=== PATIENT | male | born 1955 | race Caucasian/White ===

== ENCOUNTER → 2023-10-01 07:03 | Outpatient (REF) | payer MEDICARE, SELFPAY ==
[2023-10-01 08:00] LABS: % Basophils 1.4 % (0-2); % Eosinophils 4.1 % (0-6); % Immature Granulocytes 0.2 % (0-0.5); % Lymphocytes 32.6 % (20.5-51.1); % Monocytes 5.7 % (1.7-9.3); Absolute Basophils 0.1 10^3/uL (0-0.2); Absolute Eosinophils 0.2 10^3/uL (0-0.7); Absolute Lymphocytes 1.7 10^3/uL (1.2-3.4); Absolute Monocytes 0.3 10^3/uL (0.1-0.6); Absolute Neutrophils 2.9 10^3/uL (1.4-6.5); Hematocrit 45.1 % (39.0-52.0); Hemoglobin 15.7 g/dL (13.0-18.0); Mean Corp Hgb Conc. 34.8 g/dL (33.0-37.0); Mean Corpuscular Hgb 31.1 pg (27.0-31.0); Mean Corpuscular Volume 89.3 fL (80.0-94.0); Mean Platelet Volume 10.6 fL (7.4-10.4); Nucleated Red Blood Cells % 0 % (-); Platelet Count 197 10^3/uL (130-400); Red Blood Cell Count 5.05 10^6/uL (4.70-6.10); Red Cell Dist. Width 12.7 % (11.5-14.5); White Blood Cell Count 5.1 10^3/uL (4.8-10.8)
[2023-10-01 08:27] LABS: ALT (SGPT) 22 U/L (0-50); AST (SGOT) 25 U/L (17-59); Albumin 4.2 g/dl (3.5-5.0); Alkaline Phosphatase 58 U/L (38-126); Blood Urea Nitrogen 17 mg/dl (9-20); Calcium 9.6 mg/dl (8.4-10.2); Carbon Dioxide 30 mmol/L (22-30); Chloride 100 mmol/L (98-107); Glucose 143 mg/dl (70-99); HDL Cholesterol 53 mg/dl; LDL Cholesterol, Calculated 57 mg/dl; Potassium 4.2 mmol/L (3.5-5.1); Sodium 139 mmol/L (135-145); Total Bilirubin 0.8 mg/dl (0.2-1.3); Total Cholesterol 130 mg/dl (50-199); Total Protein 7.3 g/dl (6.3-8.2); Triglyceride 100 mg/dl (10-149); Very Low Density Lipoprotein 20 mg/dl (0-30); eGFR > 60.00
[2023-10-01 08:31] LABS: Microalbumin, Random Urine 2.7 mg/dl (0.6-1.7); Microalbumin/creatinine Ratio 29.8 mg/g; Protein/creatinine Ratio 0.1; Urine Protein 13 mg/dl
[2023-10-01 08:51] LABS: Vitamin D, 25-OH*** 64.3 ng/mL (30-80)
[2023-10-01 09:04] LABS: TSH 1.93 uIU/ml (0.47-4.68)
[2023-10-01 09:22] LABS: Glycohemoglobin (HgbA1c) 6.7 % (4.0-5.6)
[2023-10-02 12:40] LABS: Intact PTH 97.5 pg/ml (13.6-85.8)
[2023-10-02 19:54] LABS: Thyroid Peroxidase Ab (TPO) 1.1 IU/mL (0.0-9.0)
[2023-10-02 20:39] LABS: Thyroglobulin Antibodies <0.9 IU/mL (0.0-4.0)
== END ==
LOC: REG 07:03
PROVIDERS: ATTENDING PHYSICIAN Physician Assistant; FAMILY PHYSICIAN Internal Medicine
DX: E11.9 Type 2 diabetes mellitus without complications (principal); E04.1 Nontoxic single thyroid nodule; E78.5 Hyperlipidemia, unspecified; M85.80 Other specified disorders of bone density and structure, unspecified site; E55.9 Vitamin D deficiency, unspecified
CPT/HCPCS: 36415; 80053; 80061; 82043; 82306; 82570; 83036; 83970; 84156; 84432; 84439; 84443; 85025; 86376; 86800

== ENCOUNTER → 2024-01-03 08:42 | Outpatient (REF) | payer MEDICARE, SELFPAY ==
[2024-01-03 10:19] LABS: Urine Albumin Negative (Neg - Trace); Urine Bilirubin Negative (Negative); Urine Character Clear (Clear); Urine Color Yellow; Urine Glucose 3+ (Negative); Urine Ketone Negative (Negative); Urine Leukocyte Negative (Negative); Urine Nitrite Negative (Negative); Urine Occult Blood Negative (Negative); Urine Specific Gravity 1.015 (<1.030); Urine Urobilinogen Negative (Neg - 1+)
[2024-01-03 10:55] LABS: PSA, Total - Screen 1.12 ng/ml (0.0-4.0)
== END ==
LOC: REG 08:42
PROVIDERS: ATTENDING PHYSICIAN Internal Medicine; REFERRING PHYSICIAN Specialist
DX: Z12.5 Encounter for screening for malignant neoplasm of prostate (principal); N40.1 Benign prostatic hyperplasia with lower urinary tract symptoms
CPT/HCPCS: 36415; 81003; G0103

== ENCOUNTER → 2024-04-08 06:55 | Outpatient (REF) | payer MEDICARE, SELFPAY ==
[2024-04-08 08:57] LABS: % Eosinophils 7.5 % (0-6); % Immature Granulocytes 0.2 % (0-0.5); % Lymphocytes 34.1 % (20.5-51.1); % Neutrophils 49.2 % (42.2-75.2); Absolute Basophils 0.1 10^3/uL (0-0.2); Absolute Eosinophils 0.4 10^3/uL (0-0.7); Absolute Lymphocytes 1.7 10^3/uL (1.2-3.4); Absolute Monocytes 0.4 10^3/uL (0.1-0.6); Absolute Neutrophils 2.5 10^3/uL (1.4-6.5); Hematocrit 41.6 % (39.0-52.0); Hemoglobin 14.5 g/dL (13.0-18.0); Mean Corp Hgb Conc. 34.9 g/dL (33.0-37.0); Mean Corpuscular Hgb 30.9 pg (27.0-31.0); Mean Corpuscular Volume 88.5 fL (80.0-94.0); Nucleated Red Blood Cells % 0 % (-); Platelet Count 167 10^3/uL (130-400); Red Cell Dist. Width 12.7 % (11.5-14.5); White Blood Cell Count 5.1 10^3/uL (4.8-10.8)
[2024-04-08 09:01] LABS: ALT (SGPT) 25 U/L (0-50); AST (SGOT) 27 U/L (17-59); Albumin 4.6 g/dl (3.5-5.0); Alkaline Phosphatase 52 U/L (38-126); Blood Urea Nitrogen 18 mg/dl (9-20); Calcium 9.6 mg/dl (8.4-10.2); Carbon Dioxide 27 mmol/L (22-30); Chloride 106 mmol/L (98-107); Glucose 111 mg/dl (70-99); Potassium 4.3 mmol/L (3.5-5.1); Sodium 143 mmol/L (135-145); Total Bilirubin 0.7 mg/dl (0.2-1.3); Total Protein 6.9 g/dl (6.3-8.2); eGFR > 60.00
[2024-04-08 11:40] LABS: Glycohemoglobin (HgbA1c) 6.1 % (4.0-5.6)
[2024-04-09 10:59] LABS: Intact PTH 79.1 pg/ml (13.6-85.8)
== END ==
LOC: REG 06:55
PROVIDERS: ATTENDING PHYSICIAN Physician Assistant; FAMILY PHYSICIAN Internal Medicine
DX: E11.9 Type 2 diabetes mellitus without complications (principal); M85.80 Other specified disorders of bone density and structure, unspecified site; E04.1 Nontoxic single thyroid nodule
CPT/HCPCS: 36415; 80053; 83036; 83970; 85025

== ENCOUNTER → 2024-08-08 07:13 | Outpatient (REF) | payer MEDICARE, SELFPAY ==
[2024-08-08 11:32] LABS: Glycohemoglobin (HgbA1c) 6.4 % (4.0-5.6)
== END ==
LOC: REG 07:13
PROVIDERS: ATTENDING PHYSICIAN Internal Medicine
DX: E11.9 Type 2 diabetes mellitus without complications (principal)
CPT/HCPCS: 36415; 83036

== ENCOUNTER → 2024-09-25 14:22 | Outpatient (REF) | payer MEDICARE, SELFPAY | LOC: HWRAD 14:22 | PROVIDERS: ATTENDING PHYSICIAN Physician Assistant; FAMILY PHYSICIAN Internal Medicine | DX: E04.1 Nontoxic single thyroid nodule (principal) | CPT/HCPCS: 76536 ==

== ENCOUNTER → 2024-10-01 07:51 | Outpatient (REF) | payer MEDICARE, SELFPAY ==
[2024-10-01 08:38] LABS: % Basophils 1.5 % (0-2); % Eosinophils 5.7 % (0-6); % Immature Granulocytes 0.2 % (0-0.5); % Lymphocytes 27.6 % (20.5-51.1); % Monocytes 7.4 % (1.7-9.3); % Neutrophils 57.6 % (42.2-75.2); Absolute Basophils 0.1 10^3/uL (0-0.2); Absolute Eosinophils 0.3 10^3/uL (0-0.7); Absolute Lymphocytes 1.3 10^3/uL (1.2-3.4); Absolute Monocytes 0.3 10^3/uL (0.1-0.6); Absolute Neutrophils 2.6 10^3/uL (1.4-6.5); Hematocrit 46.3 % (39.0-52.0); Hemoglobin 15.8 g/dL (13.0-18.0); Mean Corp Hgb Conc. 34.1 g/dL (33.0-37.0); Mean Corpuscular Hgb 30.8 pg (27.0-31.0); Mean Corpuscular Volume 90.3 fL (80.0-94.0); Mean Platelet Volume 10.5 fL (7.4-10.4); Nucleated Red Blood Cells % 0 % (-); Platelet Count 214 10^3/uL (130-400); Red Blood Cell Count 5.13 10^6/uL (4.70-6.10); Red Cell Dist. Width 12.6 % (11.5-14.5); White Blood Cell Count 4.6 10^3/uL (4.8-10.8)
[2024-10-01 09:41] LABS: Glycohemoglobin (HgbA1c) 6.6 % (4.0-5.6)
[2024-10-01 10:27] LABS: Protein/creatinine Ratio 0.3; Urine Protein 21 mg/dl
[2024-10-01 10:33] LABS: Microalbumin, Random Urine 4.1 mg/dl (0.6-1.7); Microalbumin/creatinine Ratio 50.4 mg/g
[2024-10-01 10:34] LABS: ALT (SGPT) 26 U/L (0-50); AST (SGOT) 26 U/L (17-59); Albumin 4.4 g/dl (3.5-5.0); Alkaline Phosphatase 57 U/L (38-126); Blood Urea Nitrogen 16 mg/dl (9-20); Calcium 9.4 mg/dl (8.4-10.2); Carbon Dioxide 28 mmol/L (22-30); Chloride 102 mmol/L (98-107); Glucose 142 mg/dl (70-99); HDL Cholesterol 51 mg/dl; LDL Cholesterol, Calculated 82 mg/dl; Potassium 4.5 mmol/L (3.5-5.1); Sodium 138 mmol/L (135-145); Total Bilirubin 0.8 mg/dl (0.2-1.3); Total Cholesterol 152 mg/dl (50-199); Total Protein 7.1 g/dl (6.3-8.2); Triglyceride 95 mg/dl (10-149); Very Low Density Lipoprotein 19 mg/dl (0-30); eGFR > 60.00
[2024-10-01 11:07] LABS: TSH 1.47 uIU/ml (0.47-4.68)
== END ==
LOC: REG 07:51
PROVIDERS: ATTENDING PHYSICIAN Physician Assistant; FAMILY PHYSICIAN Internal Medicine
DX: E11.65 Type 2 diabetes mellitus with hyperglycemia (principal); E55.9 Vitamin D deficiency, unspecified; E78.5 Hyperlipidemia, unspecified; E04.1 Nontoxic single thyroid nodule; R80.9 Proteinuria, unspecified
CPT/HCPCS: 36415; 80053; 80061; 82043; 82306; 82570; 83036; 84156; 84443; 85025

== ENCOUNTER → 2024-11-20 06:48 | Outpatient (REF) | payer MEDICARE, SELFPAY ==
[2024-11-20 08:36] LABS: Hematocrit 44.3 % (39.0-52.0); Hemoglobin 15.3 g/dL (13.0-18.0); Mean Corp Hgb Conc. 34.5 g/dL (33.0-37.0); Mean Corpuscular Hgb 31.4 pg (27.0-31.0); Mean Platelet Volume 11.3 fL (7.4-10.4); Platelet Count 165 10^3/uL (130-400); Red Blood Cell Count 4.87 10^6/uL (4.70-6.10); Red Cell Dist. Width 12.5 % (11.5-14.5); White Blood Cell Count 5.7 10^3/uL (4.8-10.8)
[2024-11-20 08:59] LABS: Blood Urea Nitrogen 18 mg/dl (9-20); Calcium 9.8 mg/dl (8.4-10.2); Carbon Dioxide 30 mmol/L (22-30); Chloride 104 mmol/L (98-107); Glucose 139 mg/dl (70-99); Potassium 4.6 mmol/L (3.5-5.1); Sodium 144 mmol/L (135-145); eGFR > 60.00
== END ==
LOC: SDSPAT 06:48
PROVIDERS: ATTENDING PHYSICIAN Surgery; FAMILY PHYSICIAN Internal Medicine
DX: Z01.818 Encounter for other preprocedural examination (principal)
CPT/HCPCS: 36415; 80048; 85027; 93005

== ENCOUNTER 2024-12-24 06:24 | Day surgery (SDC) | payer MEDICARE, SELFPAY ==
[2024-11-20 12:43] VITALS: BMI 26.7
[2024-12-24] VITALS (10 sets, daily range): BP systolic 157–179; BP diastolic 76–92; BMI 26.7
[2024-12-24] MEDS: NORMOSOL-R/PLASMALYTE-A 1000 IV (07:57)
[2024-12-24] MEDS: TYLENOL 1000 MG PO (07:57)
[2024-12-24 07:58] LABS: Glucose - Point of Care 134 mg/dl (70-99)
[2024-12-24 09:43] LABS: Glucose - Point of Care 166 mg/dl (70-99)
[2024-12-24] MEDS: ZOFRAN 4 MG IV (11:06)
== END 2024-12-24 12:00 | disposition home or self-care (01) ==
LOC: SDS 06:24
PROVIDERS: ATTENDING PHYSICIAN Surgery
DX: K40.90 Unilateral inguinal hernia, without obstruction or gangrene, not specified as recurrent (principal)
CPT/HCPCS: 49650; 82962; C1781

== ENCOUNTER → 2025-04-02 07:11 | Outpatient (REF) | payer MEDICARE, SELFPAY ==
[2025-04-02 07:51] LABS: Hematocrit 43.9 % (39.0-52.0); Hemoglobin 15.1 g/dL (13.0-18.0); Mean Corp Hgb Conc. 34.4 g/dL (33.0-37.0); Mean Corpuscular Volume 88.7 fL (80.0-94.0); Nucleated Red Blood Cells % 0 % (-); Platelet Count 174 10^3/uL (130-400); Red Cell Dist. Width 12.4 % (11.5-14.5)
[2025-04-02 08:51] LABS: ALT (SGPT) 22 U/L (0-50); AST (SGOT) 25 U/L (17-59); Albumin 4.8 g/dl (3.5-5.0); Alkaline Phosphatase 53 U/L (38-126); Blood Urea Nitrogen 18 mg/dl (9-20); Calcium 9.7 mg/dl (8.4-10.2); Carbon Dioxide 24 mmol/L (22-30); Chloride 106 mmol/L (98-107); Glucose 115 mg/dl (70-99); HDL Cholesterol 54 mg/dl; LDL Cholesterol, Calculated 80 mg/dl; Potassium 4.5 mmol/L (3.5-5.1); Sodium 138 mmol/L (135-145); Total Protein 7.4 g/dl (6.3-8.2); Very Low Density Lipoprotein 12 mg/dl (0-30); eGFR > 60.00
[2025-04-02 09:02] LABS: PSA, Total - Screen 1.07 ng/ml (0.0-4.0)
[2025-04-02 10:13] LABS: Glycohemoglobin (HgbA1c) 6.3 % (4.0-5.6)
[2025-04-02 10:36] LABS: Microalbumin, Random Urine 0.8 mg/dl (0.6-1.7)
[2025-04-02 10:39] LABS: Microalb - Urine Creatinine 37.900 mg/dl
== END ==
LOC: REG 07:11
PROVIDERS: ATTENDING PHYSICIAN Physician Assistant; FAMILY PHYSICIAN Internal Medicine
DX: E11.65 Type 2 diabetes mellitus with hyperglycemia (principal); E11.9 Type 2 diabetes mellitus without complications; I10 Essential (primary) hypertension; E78.00 Pure hypercholesterolemia, unspecified; N40.1 Benign prostatic hyperplasia with lower urinary tract symptoms; I95.1 Orthostatic hypotension
CPT/HCPCS: 36415; 80053; 80061; 82043; 82570; 83036; 84156; 85025; G0103

== ENCOUNTER 2025-06-22 06:37 | Day surgery (SDC) | payer MEDICARE, SELFPAY ==
[2025-06-22 07:32] LABS: Glucose - Point of Care 117 mg/dl (70-99)
== END 2025-06-22 09:55 | disposition home or self-care (01) ==
LOC: GI 06:37
PROVIDERS: ATTENDING PHYSICIAN Internal Medicine Gastroenterology
DX: Z12.11 Encounter for screening for malignant neoplasm of colon (principal); D12.0 Benign neoplasm of cecum; D12.2 Benign neoplasm of ascending colon; D12.3 Benign neoplasm of transverse colon; D12.8 Benign neoplasm of rectum; K62.89 Other specified diseases of anus and rectum; K64.8 Other hemorrhoids; Z86.0100 Personal history of colon polyps, unspecified
CPT/HCPCS: 45385; 45381; 82962; 88305

== ENCOUNTER 2025-06-22 15:45 | Emergency (ER) | payer MEDICARE, SELFPAY ==
[2025-06-22 15:52] VITALS: BP 166/94
[2025-06-22 16:15] LABS: Hematocrit 45.1 % (39.0-52.0); Hemoglobin 15.0 g/dL (13.0-18.0); Mean Corp Hgb Conc. 33.3 g/dL (33.0-37.0); Mean Corpuscular Volume 91.9 fL (80.0-94.0); Nucleated Red Blood Cells % 0 % (-); Platelet Count 201 10^3/uL (130-400); Red Cell Dist. Width 12.3 % (11.5-14.5)
[2025-06-22 16:32] LABS: ALT (SGPT) 27 U/L (0-50); AST (SGOT) 25 U/L (17-59); Albumin 4.7 g/dl (3.5-5.0); Alkaline Phosphatase 52 U/L (38-126); Blood Urea Nitrogen 13 mg/dl (9-20); Calcium 9.1 mg/dl (8.4-10.2); Carbon Dioxide 28 mmol/L (22-30); Chloride 105 mmol/L (98-107); Glucose 139 mg/dl (70-99); Sodium 140 mmol/L (135-145); Total Protein 7.1 g/dl (6.3-8.2); eGFR > 60.00
[2025-06-22 16:36] LABS: Potassium 4.5 mmol/L (3.5-5.1)
--- NOTE | 2025-06-22 19:23 | ED.GENMED ---
History of Present Illness
General
Chief Complaint: Rectal Bleeding
Time Seen by Provider: 06/22/25 19:08
History of Present Illness
History of Present Illness:
69-year-old male presents to the emergency department for evaluation of rectal bleeding that began after having a colonoscopy today. He had multiple polypectomies predominantly from the rectal area. He is on baby aspirin and did not hold this in
anticipation of his procedure. Denies any dizziness or lightheadedness. Not on oral anticoagulants. Denies any abdominal pain.
Past History
Past History
ED Past Medical History: Negative IDDM
Social History
Tobacco: Non-smoker
Alcohol: None
Drug: None
Personal:
Living: with family
Employment: Employed
Family History
Family History: Other
Review of Systems
Review of Systems
Allergies reviewed?: Yes
All Other Systems: ROS reviewed and negative except as documented in HPI and ROS
Phy Exam
Physical Exam
Physical Exam:
GEN: Well appearing, NAD, WDWN
HEENT: Oral mucosa moist, no scleral icterus
Cardiac: Regular rate
Lung: No respiratory distress, no tachypnea
Rectal: Exam deferred as I was able to see evidence of blood in the toilet bowl of the exam room
MSK: No gross deformity or injuries
Skin: Good color, no pallor or jaundice, no rashes
Neuro: AO x3, moves all extremities freely
Psych: Calm, cooperative
Course
Orders/Labs/Results
Orders:
Orders
06/22/25 15:59
Complete Blood Count/With Diff Urgent
Comprehensive Metabolic Panel Urgent
06/22/25 19:31
Tranexamic Acid 1000 mg/100 ml [Tranexamic Acid] 1,000 mg in 100 ml IV ONCE
Abnormal Lab Results
06/22/25
15:59
MPV 10.7 H fL
(7.4-10.4)
Glucose 139 H mg/dl
(70-99)
06/22/25 15:59
06/22/25 15:59
Vital Signs
Initial and Last Documented VS:
Initial Vital Signs
Temp Pulse Resp BP Pulse Ox
98.0 F 78 16 166/94 98
06/22/25 15:52 06/22/25 15:52 06/22/25 15:52 06/22/25 15:52 06/22/25 15:52
Last Documented Vital Signs
Temp Pulse Resp BP Pulse Ox
98.1 F 68 18 183/95 98
06/22/25 19:32 06/22/25 19:32 06/22/25 19:32 06/22/25 20:00 06/22/25 20:45
MDM/Problems Addressed
MDM/Problems Addressed:
Patient did have passage of bloody contents twice in the ED however remained relatively asymptomatic otherwise. Vital signs are stable and hemoglobin is 15. Discussed case with GI who agrees that patient can be reasonably discharged, given 1 dose
of IV TXA and will hold aspirin going forward
*Pulse Oximetry
SaO2: 98
Oxygen Mode of Delivery: Room air
Patient hypoxic: no
*Critical Care Note
Total Time (30-74mins, 75-104mins- exclusive of procedures): Not Applicable
ED Attending Note
-
Portions of this chart may have been created with voice recognition software.� Occasional wrong word or��sound alike� substitutions may have occurred due to the inherent limitations of voice recognition software.
Discharge Plan
Departure
Patient Disposition: Home (Routine Discharge)
Date of Disposition: 06/22/25
Time of Disposition: 21:22
Patient with high blood pressure during this ER visit?: No
Discharge Problem:
Colonoscopy causing post-procedural bleeding
Instructions: Bloody Stools, Adult (DC)
Prescriptions:
No Action
metoprolol succinate 50 mg Tablet Extended Release 24 Hr
50 mg PO DAILY
amlodipine 5 mg Tablet
5 mg PO DAILY@0400
tamsulosin 0.4 mg Capsule
0.8 mg PO QPM
metformin 1,000 mg Tablet
1,000 mg PO BID
finasteride 5 mg Tablet
5 mg PO DAILY
ramipril 10 mg Capsule
10 mg PO DAILY
solifenacin 10 mg Tablet
10 mg PO DAILY
Jardiance 25 mg Tablet
25 mg PO DAILY
rosuvastatin [Crestor] 20 mg Tablet
20 mg PO DAILY
aspirin 81 mg Tablet,Delayed Release (Dr/Ec)
81 mg PO DAILY
Referrals:
UNKNOWN - PT DOES,NOT KNOW [Unknown Provider]
Activity Restrictions/Additional Instructions:
Hold aspirin for 5 further days
Contact your GI doctor tomorrow
Return to the ER if your bleeding worsens or you develop dizziness, lightheadedness, pale skin, chest pain or shortness of breath
Interventions
Interventions:
*Risk Screen - Suicide Last Done: 06/22/25 15:52
*General Assessment Last Done: 06/22/25 15:52
*Neglect/Abuse Screening Last Done: 06/22/25 15:52
*ED- Fall Risk Assessment Last Done: 06/22/25 19:27
*ED COVID-19 Vaccine History Last Done: 06/22/25 19:27
*ED Influenza Vaccine History Last Done: 06/22/25 19:27
*Nursing Disposition Last Done: 06/22/25 21:57
VI-Gakcxq-Symhyxqfsa Assessment Last Done: 06/22/25 19:27
ED- Cardiac Assessment Last Done: 06/22/25 19:27
ED- Pulmonary Assessment Last Done: 06/22/25 19:27
Discharge Date and Time
Discharge Date/Time: 06/22/25 21:57
Print Language: SPANISH
[2025-06-22 19:26] VITALS: BMI 27.2
[2025-06-22 19:31] VITALS: BP 193/86
[2025-06-22 19:32] VITALS: BP 182/87
[2025-06-22 19:33] VITALS: BP 182/87
[2025-06-22 20:00] VITALS: BP 183/95
[2025-06-22] MEDS: TRANEXAMIC ACID 100 IV (20:34)
== END 2025-06-22 21:57 | disposition home or self-care (01) ==
LOC: EMR 15:45
PROVIDERS: Emergency Medicine; EMERGENCY PHYSICIAN Emergency Medicine; FAMILY PHYSICIAN Internal Medicine
DX: K91.840 Postprocedural hemorrhage of a digestive system organ or structure following a digestive system procedure (principal); Y83.8 Other surgical procedures as the cause of abnormal reaction of the patient, or of later complication, without mention of misadventure at the time of the procedure
CPT/HCPCS: 99283; 96374; 80053; 85025

== ENCOUNTER 2025-06-23 23:14 | Inpatient (IN) | payer MEDICARE, SELFPAY ==
[2025-06-23 16:10] VITALS: BP 156/97
[2025-06-23 16:38] LABS: Hematocrit 42.8 % (39.0-52.0); Hemoglobin 14.3 g/dL (13.0-18.0); Mean Corp Hgb Conc. 33.4 g/dL (33.0-37.0); Mean Corpuscular Volume 91.8 fL (80.0-94.0); Nucleated Red Blood Cells % 0 % (-); Platelet Count 203 10^3/uL (130-400); Red Cell Dist. Width 12.6 % (11.5-14.5)
[2025-06-23 16:53] LABS: ALT (SGPT) 27 U/L (0-50); AST (SGOT) 22 U/L (17-59); Albumin 4.5 g/dl (3.5-5.0); Alkaline Phosphatase 55 U/L (38-126); Blood Urea Nitrogen 15 mg/dl (9-20); Calcium 9.3 mg/dl (8.4-10.2); Carbon Dioxide 21 mmol/L (22-30); Chloride 109 mmol/L (98-107); Glucose 142 mg/dl (70-99); Potassium 3.9 mmol/L (3.5-5.1); Sodium 138 mmol/L (135-145); Total Protein 7.1 g/dl (6.3-8.2); eGFR > 60.00
--- NOTE | 2025-06-23 21:30 | ED.GENMED ---
History of Present Illness
<Yvonne Swain PA-C - Last Filed: 06/24/25 10:49>
General
Chief Complaint: Rectal Bleeding
Source: patient
Exam Limitations: none
Time Seen by Provider: 06/23/25 21:22
Nursing documentation reviewed up to this point in time: agreed with
History of Present Illness
History of Present Illness:
Patient is a 69-year-old male with history hypertension, type II diabetes currently 1 day s/p colonoscopy with polypectomy presenting with persistent rectal bleeding. Patient had routine colonoscopy performed yesterday with multiple polyps removed.
He had multiple episodes of bloody stools yesterday and was seen in the emergency department last night. He was given 1 dose of TXA and discharged home.
However, today he had multiple additional episodes of bright red blood in his stool. He contacted his GI doctor who recommended admission to the hospital for colonoscopy tomorrow. His last episode of bright red bleeding was around 3 PM today.
Patient denies any shortness of breath, lightheadedness/dizziness, or weakness. He denies any abdominal pain.
He takes a baby aspirin daily.
Past History
<Yvonne Swain PA-C - Last Filed: 06/24/25 10:49>
Past History
ED Past Medical History: Negative IDDM
Social History
Tobacco: Non-smoker
Alcohol: None
Drug: None
Personal:
Living: with family
Employment: Employed
Family History
Family History: Other
Review of Systems
<ELEANOR Santacruz Last Filed: 06/24/25 10:49>
Review of Systems
Allergies reviewed?: Yes
All Other Systems: ROS reviewed and negative except as documented in HPI and ROS
Phy Exam
<ELEANOR Santacruz Last Filed: 06/24/25 10:49>
Physical Exam
Physical Exam:
Vitals: Hypertensive, otherwise vital signs stable. Afebrile
General: Patient is well appearing, no acute distress
Skin: Warm and dry, no rashes or lesions
Head: Normocephalic, atraumatic
Throat: Protecting airway
Neck: Normal ROM, no cervical spine tenderness, no meningismus
Cardiac: Regular rate and rhythm, no murmurs.
Pulm: Normal respiratory effort. Lungs clear
Abdomen: Abdomen soft and nontender
Rectal: Dried blood visualized externally. No obvious hemorrhoids.
Neuro: AAOx3. Grossly intact.
Psychiatric: Normal affect.
Course
<Yvonne Swain PA-C - Last Filed: 06/24/25 10:49>
Orders/Labs/Results
Orders:
Orders
06/23/25 16:30
Complete Blood Count/With Diff Urgent
Comprehensive Metabolic Panel Urgent
06/23/25 22:48
Admit/Transfer Patient As Directed
Co-Sign Provider:
Level of Care: Inpatient admission
Assign to:: Telemetry
Physician / Group: Keron
Diagnosis: Post-Polypectomy Bleeding
Reason for Telemetry: Arrhythmia
Date to Stop Telemetry: 06/26/25
Time to Stop Telemetry: 11:00
Reason for Hospitalization: Post-Polypectomy Bleeding
Expected length of stay greater than two midnights?: Yes
ELOS- Estimated Length of Stay in days: 2
I certify the patient meets the requirements for IP care: Yes
PRN Pain Medication Management As Directed
May give lesser potent ordered pain med per pt: Yes
preference::
Protocol:: Medication orders for pain may be administered in a
manner that supports deferring to patient preference
when the pt is:
- Requesting an ordered lesser potent pain medication.
Least to most potent pain medications are defined
as: acetaminophen < NSAID < tramadol < opioids
(morphine, oxycodone, hydromorphone).
- Requesting a lesser dose of the same medication IF
ORDERED.
- Requesting a less intrusive route of administration
if both routes are prescribed by the provider (PO <
IV).
06/23/25 22:49
Code Status As Directed
Resuscitation Status: Full Code
06/23/25 23:00
Polyethylene Glycol 3350 [Gavilax] 238 gm PO ONCE ONE
06/24/25 00:06
Acetaminophen [Tylenol] 650 mg PO Q4HPRN PRN
Dextrose 50%-Water [Dextrose 50% Syringe] 12.5 grams IV [id number] PRN
Glucagon [GlucaGen] 1 mg IM PRN PRN
Lactated Ringers [Lr] 1,000 ml IV 100 mls/hr
Ondansetron Injectable [Zofran] 4 mg IV Q6HPRN PRN
06/24/25 00:06
GASTROINTESTINAL CONSULT Routine
Consulting Provider: Kuldip Holm
Was physician already notified: Yes
Reason for consult: Post-Polypectomy Bleeding
Activity As Directed
Activity Level: Ambulate
With Assistance
Bedside Glucose Monitoring As Directed
Frequency: AC&HS
Additional Instructions:: Change to q6h if pt on TPN, tube feeding or not eating
I/O [Intake/ Output] As Directed
Frequency: Per unit guidelines
Pneumatic Compression Sleeves As Directed
Type: Knee high
Vital Signs As Directed
Frequency: Per unit guidelines
Oxygen Therapy [O2 Therapy] [RESP] Routine
Titrate/Wean O2 to maintain O2 sat greater than (%): 94
DX Deep Vein Thrombosis Video Routine
06/24/25 00:18
HH [H&H] Q6H
06/24/25 Breakfast
NPO
Allow oral meds: Yes
Allow clear liquids: Sips of Clears
06/24/25 06:55
Basic Metabolic Panel IN AM
Complete Blood Count/No Diff IN AM
Glycohemoglobin (HgbA1c) IN AM
06/24/25 07:30
Insulin Aspart Corrective Low [Novolog Flexpen-Low Resistance] See Protocol SC AC
06/24/25 08:00
Pantoprazole [Protonix IV] 40 mg IV DAILY
06/26/25 11:00
DC Protocol for Telemetry ONCE
Abnormal Lab Results
06/23/25
16:30
RBC 4.66 L 10^6/uL
(4.70-6.10)
MPV 10.5 H fL
(7.4-10.4)
Chloride 109 H mmol/L
(98-107)
Carbon Dioxide 21 L mmol/L
(22-30)
Glucose 142 H mg/dl
(70-99)
06/23/25 16:30
06/23/25 16:30
Vital Signs
Initial and Last Documented VS:
Initial Vital Signs
Temp Pulse Resp BP Pulse Ox
97.8 F 78 16 156/97 95
06/23/25 16:10 06/23/25 16:10 06/23/25 16:10 06/23/25 16:10 06/23/25 16:10
Last Documented Vital Signs
Temp Pulse Resp BP Pulse Ox
98.4 F 88 20 176/94 97
06/24/25 07:58 06/24/25 07:58 06/24/25 07:58 06/24/25 08:24 06/24/25 07:58
anel;Lebron Major, DO - Last Filed: 06/23/25 21:46>
Orders/Labs/Results
Orders:
Orders
06/23/25 16:30
Complete Blood Count/With Diff Urgent
Comprehensive Metabolic Panel Urgent
06/23/25 22:48
Admit/Transfer Patient As Directed
Co-Sign Provider:
Level of Care: Inpatient admission
Assign to:: Telemetry
Physician / Group: Keron
Diagnosis: Post-Polypectomy Bleeding
Reason for Telemetry: Arrhythmia
Date to Stop Telemetry: 06/26/25
Time to Stop Telemetry: 11:00
Reason for Hospitalization: Post-Polypectomy Bleeding
Expected length of stay greater than two midnights?: Yes
ELOS- Estimated Length of Stay in days: 2
I certify the patient meets the requirements for IP care: Yes
PRN Pain Medication Management As Directed
May give lesser potent ordered pain med per pt: Yes
preference::
Protocol:: Medication orders for pain may be administered in a
manner that supports deferring to patient preference
when the pt is:
- Requesting an ordered lesser potent pain medication.
Least to most potent pain medications are defined
as: acetaminophen < NSAID < tramadol < opioids
(morphine, oxycodone, hydromorphone).
- Requesting a lesser dose of the same medication IF
ORDERED.
- Requesting a less intrusive route of administration
if both routes are prescribed by the provider (PO <
IV).
06/23/25 22:49
Code Status As Directed
Resuscitation Status: Full Code
06/23/25 23:00
Polyethylene Glycol 3350 [Gavilax] 238 gm PO ONCE ONE
06/24/25 00:06
Acetaminophen [Tylenol] 650 mg PO Q4HPRN PRN
Dextrose 50%-Water [Dextrose 50% Syringe] 12.5 grams IV [id number] PRN
Glucagon [GlucaGen] 1 mg IM PRN PRN
Lactated Ringers [Lr] 1,000 ml IV 100 mls/hr
Ondansetron Injectable [Zofran] 4 mg IV Q6HPRN PRN
06/24/25 00:06
GASTROINTESTINAL CONSULT Routine
Consulting Provider: Kuldip Holm
Was physician already notified: Yes
Reason for consult: Post-Polypectomy Bleeding
Activity As Directed
Activity Level: Ambulate
With Assistance
Bedside Glucose Monitoring As Directed
Frequency: AC&HS
Additional Instructions:: Change to q6h if pt on TPN, tube feeding or not eating
I/O [Intake/ Output] As Directed
Frequency: Per unit guidelines
Pneumatic Compression Sleeves As Directed
Type: Knee high
Vital Signs As Directed
Frequency: Per unit guidelines
Oxygen Therapy [O2 Therapy] [RESP] Routine
Titrate/Wean O2 to maintain O2 sat greater than (%): 94
DX Deep Vein Thrombosis Video Routine
06/24/25 00:18
HH [H&H] Q6H
06/24/25 Breakfast
NPO
Allow oral meds: Yes
Allow clear liquids: Sips of Clears
06/24/25 06:55
Basic Metabolic Panel IN AM
Complete Blood Count/No Diff IN AM
Glycohemoglobin (HgbA1c) IN AM
06/24/25 07:30
Insulin Aspart Corrective Low [Novolog Flexpen-Low Resistance] See Protocol SC AC
06/24/25 08:00
Pantoprazole [Protonix IV] 40 mg IV DAILY
06/26/25 11:00
DC Protocol for Telemetry ONCE
Abnormal Lab Results
06/23/25
16:30
RBC 4.66 L 10^6/uL
(4.70-6.10)
MPV 10.5 H fL
(7.4-10.4)
Chloride 109 H mmol/L
(98-107)
Carbon Dioxide 21 L mmol/L
(22-30)
Glucose 142 H mg/dl
(70-99)
06/23/25 16:30
06/23/25 16:30
Vital Signs
Initial and Last Documented VS:
Initial Vital Signs
Temp Pulse Resp BP Pulse Ox
97.8 F 78 16 156/97 95
06/23/25 16:10 06/23/25 16:10 06/23/25 16:10 06/23/25 16:10 06/23/25 16:10
Last Documented Vital Signs
Temp Pulse Resp BP Pulse Ox
98.4 F 88 20 176/94 97
06/24/25 07:58 06/24/25 07:58 06/24/25 07:58 06/24/25 08:24 06/24/25 07:58
<Yvonne Swain PA-C - Last Filed: 06/24/25 10:49>
MDM/Problems Addressed
Differential Diagnosis Includes:
Not limited to: Post-polypectomy bleeding, internal hemorrhoids, external hemorrhoids, anal fissures, anemia, malignancy, etc.
MDM/Problems Addressed:
69-year-old male with persistent rectal bleeding s/p colonoscopy with polypectomy. No lightheadedness, dizziness, shortness of breath. No oral anticoagulation use.
Patient hemodynamically stable. On arrival, he appears well and in no distress. Abdomen soft and nontender. Dried blood noted externally however no active rectal bleeding.
Labs sent prior to my evaluation without clinically significant abnormalities. Hemoglobin stable.
This is patients second visit to ED in two days with persistent bleeding. Suspect likely secondary to polypectomy yesterday.
Discussed w/ GI, Dr. Holm. Patient will be admitted to hospitalist service with G.I. consultation. Plan for colonoscopy tomorrow morning. Patient will require bowel prep tonight.
Accepted to hospitalist service in stable condition.
Chronic conditions affecting care:
Recent colonoscopy with polypectomy
Acute Exacerbation and/or Progression of Chronic Illness:
Post-polypectomy bleeding
<Yvonne Swain PA-C - Last Filed: 06/24/25 10:49>
*Pulse Oximetry
SaO2: 95
Oxygen Mode of Delivery: Room air
Patient hypoxic: no
*EKG
Interpreted by ED Provider?: NA
*Tightener Interpretation
Rate: Tightener- N/A
*Critical Care Note
Total Time (30-74mins, 75-104mins- exclusive of procedures): Not Applicable
Data Reviewed
Review of Other/Old Records Reveals: Operative Reports (Reviewed colonoscopy report from 06/22/2025) and Discharge Summary (Reviewed ED visit from last night 06/22/2025)
ED Attending Note
<Yvonne Swain PA-C - Last Filed: 06/24/25 10:49>
-
Portions of this chart may have been created with voice recognition software.� Occasional wrong word or��sound alike� substitutions may have occurred due to the inherent limitations of voice recognition software.
<Lebron Major DO - Last Filed: 06/23/25 21:46>
ED Attending Note
Patient seen and examined by attending physician: Yes
ED Attending Note:
I have reviewed and agree with history and treatmetn plan by Yvonne Swain PA-C. My exam revealed 69-year-old male in no acute distress. No bleeding at this time. Will admit to hospitalist and start MiraLAX prep, plan for colonoscopy tomorrow
to evaluate post colonoscopy polypectomy bleeding.
Discharge Plan
Departure
Patient Disposition: Admit
Date of Disposition: 06/23/25
Time of Disposition: 21:31
Presentation/result/management discussed w/ accepting MD/DO: Hospitalist
Discharge Problem:
Colonoscopy causing post-procedural bleeding
Interventions
Interventions:
*Risk Screen - Suicide Last Done: 06/23/25 21:59
*General Assessment Last Done: 06/23/25 21:50
*Neglect/Abuse Screening Last Done: 06/23/25 21:50
*ED- Fall Risk Assessment Last Done: 06/23/25 21:50
*ED COVID-19 Vaccine History Last Done: 06/23/25 21:50
*ED Influenza Vaccine History Last Done: 06/23/25 21:50
*Nursing Disposition Last Done: 06/24/25 00:13
ZV-Sflqhq-Tefzhslskc Assessment Last Done: 06/23/25 21:58
ED- Cardiac Assessment Last Done: 06/23/25 21:58
ED- Pulmonary Assessment Last Done: 06/23/25 21:58
Discharge Date and Time
Discharge Date/Time: 06/24/25 00:35
[2025-06-23 21:42] VITALS: BP 185/93
[2025-06-23 21:50] VITALS: BMI 27.0
--- NOTE | 2025-06-23 22:51 | HPS.HSE ---
Family Physician
-
Family Physician: Adrian Snow
Chief Complaint
-
Rectal Bleeding
History of Present Illness
Patient is a 69y M with PMH significant for hypertension, DM-II and BPH who presents to ED complaining of rectal bleeding. Patient underwent colonoscopy on 06/22 with multiple polyps removed. 3PM on the day of procedure - he began to note some
passage of BRBPR. He had several episodes and presented to the ED last PM for evaluation. Patient was treated with TXA and discharged to home. Today he has continued to have episodes of bloody stool with both dark / maroon colored blood as well
as bright red blood per rectum. He denies any abdominal pain or rectal pain. No N/V. Not lightheaded, dizzy or SOB.
Medical History
Past Medical History
Past Medical History: Reports Other
Additional Past Medical History:
Hypertension
DM-II
MERLE
BPH
GERD
Past Surgical History: Reports Other
Additional Past Surgical History:
UP3
Hernia Repairs
Appendectomy
Social History
Tobacco: Non-smoker
Alcohol: None
Drug: None
Family History
Family History: Not pertinent
Allergies / Home Medications
Allergies reflects when Allergies were last updated in [facility].
Home Medications with original date entered in [facility]
Allergy/Medication List:
Allergies
Allergy/AdvReac Type Severity Reaction Status Date / Time
No Known Allergies Allergy Verified 06/23/25 22:01
Home Medications
amlodipine 5 mg tablet 5 mg PO DAILY@0400 Blood Pressure 11/25/24
empagliflozin 25 mg tablet (Jardiance) 25 mg PO DAILY Diabetes 11/25/24
finasteride 5 mg tablet 5 mg PO DAILY Urinary Issue 11/25/24
metformin 1,000 mg tablet 1,000 mg PO BID Diabetes 11/25/24
metoprolol succinate 50 mg tablet,extended release 24 hr 50 mg PO DAILY Heart Disease/Condition 11/25/24
ramipril 10 mg capsule 10 mg PO DAILY Heart Disease/Condition 11/25/24
solifenacin 10 mg tablet 10 mg PO DAILY Urinary Issue 11/25/24
tamsulosin 0.4 mg capsule 0.8 mg PO QPM Urinary Issue 11/25/24
rosuvastatin 20 mg tablet (Crestor) 20 mg PO DAILY High Cholesterol 06/22/25
Review of Systems
-
History Source: Patient
A 12 point ROS was completed and negative except as noted: Yes
Constitutional: Denies Fever, Fatigue or Chills
Respiratory: Denies Cough or Trouble Breathing
Cardiac: Denies Chest Pain or Palpitations
Abdomen/GI: Reports Bloody Stools; Denies Abdominal Pain, Nausea, Vomiting or Diarrhea
: Denies Dysuria, Frequency or Flank Pain
Musculoskeletal: Denies Joint Pain or Edema
Neurological: Denies Dizzy or Headache
Physical Exam
Vital Signs
Vital Signs
Temp Pulse Resp BP Pulse Ox
97.8 F 76 19 185/93 97
06/23/25 16:10 06/23/25 21:45 06/23/25 21:45 06/23/25 21:42 06/23/25 21:45
Physical Exam
General: Other (69y M in no acute distress.)
HEENT: Moist mucous membranes and PERRLA
Respiratory: Clear; No Wheezes, Rales or Rhonchi
Cardiac: S1/S2 and Regular Rhythm; No Murmur
GI: Soft, Non Tender, Non Distended and Normal Bowel Sounds
Musculoskeletal: No Clubbing, No Cyanosis and No Edema
Neuro: AO x 3
Laboratory Results
-
06/23/25 16:30
06/23/25 16:30
Laboratory Results
Total Bilirubin 0.5 mg/dl (0.2-1.3) 06/23/25 16:30
AST 22 U/L (17-59) 06/23/25 16:30
ALT 27 U/L (0-50) 06/23/25 16:30
Alkaline Phosphatase 55 U/L (38-126) 06/23/25 16:30
Impression/Plan
-
A/P: Patient is a 69y M with PMH significant for hypertension and DM-II who presents to ED complaining of bright red blood per rectum s/p colonoscopy with polypectomy on 06/22/25.
Post-Polypectomy Bleeding
- Admit for further evaluation and treatment.
- Colonoscopy on 06/22 with removal of multiple polyps.
4mm cecal polyp
4mm ascending colon polyp
6mm transverse colon polyp
3 rectal polyps
15-18mm ileocecal valve polyp
- Hgb / vitals stable but persistent BRBPR.
- NPO x prep per GI.
- Plan for colonoscopy in the AM for re-evaluation.
- IVF support. Follow H&H for any changes.
- Follow for any acute changes in hemodynamic / increased bleeding / etc.
Benign Hypertension
- Hold PO medications acutely. Resume after colonoscopy tomorrow if appropriate.
DM-II
- Follow glucose and cover with SSI if needed.
- Update A1C
DVT Prophylaxis: SCDs
Code Status: Full
[2025-06-23 23:00] VITALS: BP 177/88
[2025-06-23] MEDS: GAVILAX 238 GM PO (23:28)
[2025-06-24 00:32] LABS: Hematocrit 40.4 % (39.0-52.0); Hemoglobin 14.1 g/dL (13.0-18.0)
--- NOTE | 2025-06-24 00:43 | PTCARENOTE ---
Pt received from ED via stretcher at 0042. Pt pleasant, AAOx3, VSS, and able to ambulate into room with assistance. Pt receptive to room and call stoner. Pt bed in lowest position and call stoner within reach. Pt educated on importance of call stoner
usage, pt relays understanding and cooperation. Will continue with current plan of care.
[2025-06-24] MEDS: LR 1000 IV ×2 (00:46→12:39)
[2025-06-24 00:47] LABS: Glucose - Point of Care 102 mg/dl (70-99)
[2025-06-24 00:51] VITALS: BP 189/102; BMI 26.6
[2025-06-24] MEDS: APRESOLINE 10 MG IV ×2 (02:45→08:24)
--- NOTE | 2025-06-24 03:00 | DOWNTIME ---
There was a [employer] Downtime on 06/24/2025 from 0100 to 06/24/2025 at 0255. Downtime documentation of patient's care, including medication administrations, has been reconciled in the electronic record per guidelines. Refer to the
patient's paper chart under the miscellaneous tab to see printed paper medication records and downtime forms.
[2025-06-24 03:15] VITALS: BP 163/85
[2025-06-24 06:00] LABS: Glucose - Point of Care 118 mg/dl (70-99)
--- NOTE | 2025-06-24 06:39 | CON.GI ---
Addendum entered and electronically signed by Kuldip Holm DO 06/24/25 08:53:
I saw and examined the patient.
The [employer]'s note was reviewed and I agree with the note.
Comment: Mr Barrera is a 69 y.o male with past medical history as detailed below with recent colonoscopy on 06/22/25 with multiple polyps removed (including larger >1 cm polyp in proximal AC) presenting with rectal bleeding concerning for
post-polypectomy bleed. Currently, he remains HD-stable and stable H/h. Still having ongoing rectal bleeding and would benefit from a repeat colonoscopy for further evaluation and treatment with potential clipping. Spoke with patient this AM and
reviewed risks and benefits of procedure and amenable in regards to proceeding with a colonoscopy today. I have updated his primary Pbx Installer (Dr. Cordero) as well. Rest oc are as outlined below. See same day colonoscopy report for
additional findings and recommendations.
Please call with any questions or concerns.
Original Note:
Consultation
-
Date/Time Consultation Requested: 06/24/25 0006
Date/Time Consultation Performed: 06/24/25- 629
Requesting Provider: Brad Cabrales DO
Performing Provider: ALBERTO Almaraz, Kuldip Holm DO
Reason for Consultation: concern for post polypectomy bleeding
Medical History
Chief Complaint / HPI
Chief Complaint: rectal bleeding
History of Present Illness:
Pt is a 69yo with hx GERD, HTN, hyperlipidemia, NIDDM, sleep apnea with prior uvulopalatopharyngoplasty, hemorrhoids, prostatitis, BPH, hernia repair x 2, appe, and hx colon polyps that went for colonoscopy in 06/22/25 with
resection of multiple polyps--4 mm polyp in the cecum, removed with a cold snare, 4 mm polyp in the ascending colon, removed with a cold snare, One 15 to 18 mm polyp across from IC valve in the ascending colon, removed with a hot snare, removed
piecemeal using a hot snare and removed with a cold snare. Injected and clips placed, One 6 mm polyp in the transverse colon, removed with a cold snare and Three 3 to 8 mm polyps in the rectum, removed with a cold snare. Clip was placed and
internal hemorrhoids Internal hemorrhoids. After procedure noted with increased rectal bleeding. He was seen in ER and given dose IV TXA and advised to hold ASA but bleeding persisted and returned to ER. hbg trend 04/02/25- 15.1, 06/22/25 15,
06/23/25- 14.3, 06/24- 14.1
In review with pateint he admits to initially dark red stool then now with bright red with dark clots with prep. He admits to hx GERD stable off medication but denies any other prior GI issue with dysphagia, nausea, vomiting, abdominal pain,
diarhea, constiaption or black stools.
Past Medical History
Past Medical History: GERD, HTN, Hypercholesterolemia, NIDDM and Other (sleep apnea, hemorrhoids, prostatitis, BPH)
Past Surgical History: Appendectomy and Other (uvulopalatopharyngoplasty, open left inguinal hernia repair 2014, robotic right inguinal hernia repair with mesh )
Social History
Tobacco: Non-Smoker
Alcohol: None
Drug: None
Personal:
Living: With Family
Employment: Retired
Family History
Family History: Other (no family hx colon CA or polyps)
Allergies / Home Medications
Allergy/AdvReac Type Severity Reaction Status Date / Time
No Known Allergies Allergy Verified 06/23/25 22:01
�Medication �Instructions �Recorded
amlodipine 5 mg tablet 5 mg PO DAILY@0400 Blood Pressure 11/25/24
empagliflozin 25 mg tablet 25 mg PO DAILY Diabetes 11/25/24
(Jardiance)
finasteride 5 mg tablet 5 mg PO DAILY Urinary Issue 11/25/24
metformin 1,000 mg tablet 1,000 mg PO BID Diabetes 11/25/24
metoprolol succinate 50 mg 50 mg PO DAILY Heart 11/25/24
tablet,extended release 24 hr Disease/Condition
ramipril 10 mg capsule 10 mg PO DAILY Heart 11/25/24
Disease/Condition
solifenacin 10 mg tablet 10 mg PO DAILY Urinary Issue 11/25/24
tamsulosin 0.4 mg capsule 0.8 mg PO QPM Urinary Issue 11/25/24
rosuvastatin 20 mg tablet (Crestor) 20 mg PO DAILY High Cholesterol 06/22/25
Review of Systems
-
History Source: Patient
Constitutional: Reports No Symptoms
EENT: Reports No Symptoms
Respiratory: Reports No Symptoms
Cardiac: Reports No Symptoms
Abdomen/GI: Reports Bloody Stools (dark red and bright red )
: Reports No Symptoms
Musculoskeletal: Reports No Symptoms
Neurological: Reports No Symptoms
Endocrine: Reports No Symptoms
Hematologic/Lymphatic: Reports Bleeding
Vital Signs
Temp Pulse Resp BP Pulse Ox
97.9 F 73 16 163/85 95
06/24/25 03:15 06/24/25 03:15 06/24/25 03:15 06/24/25 03:15 06/24/25 03:15
Physical Exam
Exam
General: Well Developed, Well Nourished and No Apparent Distress
HEENT: Normocephalic and Anicteric
Respiratory: Clear
Cardiac: Regular Rhythm
GI: Soft, Non Tender and Non Distended
Musculoskeletal: No Clubbing and No Cyanosis
Skin: Warm and Dry
Neuro: Awake, Alert and AO x 3
Psych: Calm
Results
WBC 8.5 10^3/uL (4.8-10.8) 06/23/25 16:30
Hgb 14.1 g/dL (13.0-18.0) 06/24/25 00:18
Hct 40.4 % (39.0-52.0) 06/24/25 00:18
MCV 91.8 fL (80.0-94.0) 06/23/25 16:30
Plt Count 203 10^3/uL (130-400) 06/23/25 16:30
Absolute Neuts (auto) 6.0 10^3/uL (1.4-6.5) 06/23/25 16:30
Sodium 138 mmol/L (135-145) 06/23/25 16:30
Potassium 3.9 mmol/L (3.5-5.1) 06/23/25 16:30
Chloride 109 mmol/L (98-107) H 06/23/25 16:30
Carbon Dioxide 21 mmol/L (22-30) L 06/23/25 16:30
BUN 15 mg/dl (9-20) 06/23/25 16:30
Creatinine 0.7 mg/dL (0.7-1.3) 06/23/25 16:30
Calcium 9.3 mg/dl (8.4-10.2) 06/23/25 16:30
Total Bilirubin 0.5 mg/dl (0.2-1.3) 06/23/25 16:30
AST 22 U/L (17-59) 06/23/25 16:30
ALT 27 U/L (0-50) 06/23/25 16:30
Alkaline Phosphatase 55 U/L (38-126) 06/23/25 16:30
Diagnostic Image Results:
Prior GI Procedures:
none since admission
Colonoscopy: 06/22/25 [facility]
- One 4 mm polyp in the cecum, removed with a cold snare. Resected
and retrieved.
- One 4 mm polyp in the ascending colon, removed with a cold snare.
Resected and retrieved.
- One 15 to 18 mm polyp in the ascending colon, removed with a hot
snare, removed piecemeal using a hot snare and removed with a cold
snare. Resected and retrieved. Injected. Clips were placed.
- One 6 mm polyp in the transverse colon, removed with a cold
snare. Resected and retrieved.
- Three 3 to 8 mm polyps in the rectum, removed with a cold snare.
Resected and retrieved. Clip was placed.
- Internal hemorrhoids.
path pending
colonoscopy 05/2020 [facility]
- The examined portion of the ileum was normal.
- One 4 mm polyp in the transverse colon, removed with
a jumbo cold forceps. Resected and retrieved.-- bx early TA
- One 3 mm polyp in the descending colon, removed with
a jumbo cold forceps. Resected and retrieved. bx TA
- Internal hemorrhoids.
Assessment / Plan
-
Pt is a 69yo with hx GERD, HTN, hyperlipidemia, NIDDM, sleep apnea with prior uvulopalatopharyngoplasty, hemorrhoids, prostatitis, BPH, hernia repair x 2, appe, and hx colon polyps that went for colonoscopy in 06/22/25 with
resection of multiple polyps--4 mm polyp in the cecum, removed with a cold snare, 4 mm polyp in the ascending colon, removed with a cold snare, One 15 to 18 mm polyp in the ascending colon across from IC valve, removed with a hot
snare, removed piecemeal using a hot snare and removed with a cold snare. Injected and clips placed, One 6 mm polyp in the transverse colon, removed with a cold snare and Three 3 to 8 mm polyps in the rectum, removed with a cold snare. Clip was
placed and internal hemorrhoids Internal hemorrhoids. After procedure noted with increased rectal bleeding. He was seen in ER and given dose IV TXA and advised to hold ASA but bleeding persisted and returned to ER. hbg trend 04/02/25- 15.1,
06/22/25 15, 06/23/25- 14.3, 06/24- 14.1
-post polypectomy bleeding
-hx TA colon polyps
other med problems:
GERD, HTN, hyperlipidemia, NIDDM, sleep apnea with prior uvulopalatopharyngoplasty, hemorrhoids, prostatitis, BPH, hernia repair x 2, appe
PLAN:
etiology of bleeding likely related to recent resection of polyps-- possible rectal with bright red blood vs large AC polyp plolyp with piecemeal removal as some dark red stool
still with bleeding with prep
s/p prep overnight
hbg remains stable cont to trend
plan for colonoscopy today
NPO- prep finished at 3 am
path pending
all questions answered
-
-
Thank you for consultation and allowing me to participate in the patient's care. Please call the senior publications specialist GI physician during the after hours with any questions or concerns.
[2025-06-24 07:36] LABS: Hematocrit 41.9 % (39.0-52.0); Hemoglobin 14.2 g/dL (13.0-18.0); Mean Corp Hgb Conc. 33.9 g/dL (33.0-37.0); Mean Corpuscular Volume 92.7 fL (80.0-94.0); Platelet Count 193 10^3/uL (130-400); Red Cell Dist. Width 12.4 % (11.5-14.5)
[2025-06-24] MEDS: NSS (PRESERVATIVE FREE) 10 ML IV (07:53)
[2025-06-24] MEDS: PROTONIX IV 40 MG IV (07:53)
[2025-06-24 07:58] VITALS: BP 176/94
[2025-06-24 08:13] LABS: Blood Urea Nitrogen 12 mg/dl (9-20); Calcium 9.3 mg/dl (8.4-10.2); Carbon Dioxide 23 mmol/L (22-30); Chloride 107 mmol/L (98-107); Estimated Creatinine Clearance 114 ml/min; Glucose 108 mg/dl (70-99); Potassium 4.0 mmol/L (3.5-5.1); Sodium 141 mmol/L (135-145); eGFR > 60.00
[2025-06-24 08:46] LABS: Glycohemoglobin (HgbA1c) 6.6 % (4.0-5.9)
[2025-06-24] MEDS: ALTACE 10 MG PO (09:47)
[2025-06-24 11:10] VITALS: BP 130/72
[2025-06-24 11:15] VITALS: BP 149/66
[2025-06-24 11:20] LABS: Glucose - Point of Care 103 mg/dl (70-99)
[2025-06-24 11:30] VITALS: BP 158/85
[2025-06-24] MEDS: TOPROL XL 50 MG PO (13:40)
--- NOTE | 2025-06-24 14:50 | CM ---
CM reviewed chart, patient seen bedside with , initial assessment completed.
Patient resides with in a multiple story home, bedroom on second floor.
Patient is independent with ADLs/IADLS, denies use of DME, VN/SNF.
Patient PCP Adrian Snow, Pharmacy [facility] confirms prescription coverage.
Patient provided with IMM, reviewed, placed in chart.
Patient confirms transport home.
CM will continue to follow for all d/c planning needs.
Plan; home no needs
--- NOTE | 2025-06-24 15:00 | W.DCSUMMARY ---
Discharge Summary
Discharge Data
Date of Admission: 06/23/25
Date of Discharge: 06/24/25
Total time spent discharging patient (in min): 46
-
Pending Results: No
Hospital Course
Mr. Bignham is a 69-year-old male with a medical history of hypertension, NIDDM, and prostate enlargement who presented with rectal bleeding after recent colonoscopy with polypectomy on 06/22/2025. He was brought to endoscopy for further
evaluation with colonoscopy on 06/24. He was found to have a single overlying clot at the previous polypectomy site in the proximal ascending colon for which 3 hemostatic clips were placed with no further bleeding. Another polypectomy site in his
ascending colon was noted to have overlying clot for which a total of 5 hemostatic clips were placed with no further evidence of bleeding. And additional clip was placed at the polypectomy site in his rectum. He tolerated the procedure well. He
was able to tolerate regular diet after the procedure with minimal residual blood in the subsequent bowel movement. He remained hemodynamically stable and was discharged to home. He will need close follow-up with his primary delicatessen goods stock clerk
(Dr. Cordero) and with his primary care physician.
General: No Apparent Distress, Comfortable and Conversant
HEENT: NormoCephalic, Moist mucous membranes, Atraumatic
Respiratory: Clear and Non Labored Respirations
Cardiac: S1/S2 and Regular Rhythm; No Rub or Gallop
GI: Soft, Non Tender, Non Distended and Normal Bowel Sounds
Musculoskeletal: No Edema, no deformity
: NO Mckeon
Neuro: Awake, Alert, Nonfocal/grossly intact
Psych: Calm and Intact Judgment/Insight
Discharge Plan
-
Patient Disposition: Home (Routine Discharge)
Discharge Diagnosis/Procedures: Postpolypectomy bleeding
Activity Restrictions/Additional Instructions:
You were admitted for evaluation and management of GI bleeding after your recent polypectomy. You were found to have some minor bleeding at the site of one of your polypectomies in your ascending colon. Clips were placed and there appears to be no
further bleeding. You will need to follow-up with your primary delicatessen goods stock clerk for further evaluation and management.
Referrals:
Adrian Snow MD [Family Provider, Internal Medicine]
Ruthie Cordero MD [Active, Gastroenterology]
Prescriptions:
Continued
metoprolol succinate 50 mg Tablet Extended Release 24 Hr
50 mg PO DAILY
amlodipine 5 mg Tablet
5 mg PO DAILY@0400
tamsulosin 0.4 mg Capsule
0.8 mg PO QPM
metformin 1,000 mg Tablet
1,000 mg PO BID
finasteride 5 mg Tablet
5 mg PO DAILY
ramipril 10 mg Capsule
10 mg PO DAILY
solifenacin 10 mg Tablet
10 mg PO DAILY
Jardiance 25 mg Tablet
25 mg PO DAILY
rosuvastatin [Crestor] 20 mg Tablet
20 mg PO DAILY
Discharge Orders:
Discharge Patient (As Directed); Ordered 06/24/25
Ordered By: Stoney Fulton
Discharge Date and Time
Print Language: URDU
[2025-06-25 18:46] LABS: Hepatitis C Antibody Negative (Negative)
== END 2025-06-24 15:32 | disposition home or self-care (01) | DRG 921 ==
LOC: 4 WEST ACU 23:14
PROVIDERS: Student in an Organized Health Care Education/Training Program; ADMITTING PHYSICIAN Hospitalist; ATTENDING PHYSICIAN Internal Medicine; CONSULT PHYSICIAN Student in an Organized Health Care Education/Training Program; EMERGENCY PHYSICIAN Emergency Medicine; FAMILY PHYSICIAN Internal Medicine
PROC: 0W3P8ZZ Control Bleeding in Gastrointestinal Tract, Via Natural or Artificial Opening Endoscopic (ICD-10-PCS; 2025-06-24)
DX: K91.840 Postprocedural hemorrhage of a digestive system organ or structure following a digestive system procedure (principal); Y83.8 Other surgical procedures as the cause of abnormal reaction of the patient, or of later complication, without mention of misadventure at the time of the procedure; E11.9 Type 2 diabetes mellitus without complications; I10 Essential (primary) hypertension; N40.0 Benign prostatic hyperplasia without lower urinary tract symptoms; G47.33 Obstructive sleep apnea (adult) (pediatric); K21.9 Gastro-esophageal reflux disease without esophagitis; Z79.84 Long term (current) use of oral hypoglycemic drugs; K64.8 Other hemorrhoids; E78.00 Pure hypercholesterolemia, unspecified; Z79.82 Long term (current) use of aspirin; Z86.0100 Personal history of colon polyps, unspecified
CPT/HCPCS: 80048; 80053; 82962; 83036; 85014; 85018; 85025; 85027; 86803; 99284